=== PATIENT | female | born 1965 ===

== ENCOUNTER 2016-09-21 11:26 | Inpatient (IN) | payer OTHER, MEDICAID ==
[2016-09-21 11:27] VITALS: BMI 28.3
--- NOTE | 2016-09-21 12:28 | ED PDOC ---
HPI: Psych/Substance Abuse Time Seen by Provider: 09/21/16 12:01 Chief Complaint (Nursing): Psychiatric Evaluation History Per: Patient, Family (Jenny (sister)) History/Exam Limitations: intoxication Additional Complaint(s): As per pt's sister, pt. called her today crying and saying that she wanted to hurt herself. Her sister states that they picked her up from [facility] ED earlier today where she was being treated for ETOH intoxication and was discharged at 0600 under the care of pt.'s son. Pt. was brought to her sister's house where they attempted to bathe and feed her but she refused and eventually left the house again. Her sister believes that she may have drank more as she appears to be mroe intoxicated than when she left the house. Pt. does have a hx of suicidal ideations and attempt. Pt. offers no complaints at this time and is requesting to leave. Past Medical History Reviewed: Historical Data, Nursing Documentation, Vital Signs - Medical History PMH: Anxiety, Bipolar Disorder, Depression, Hepatitis Denies: Diabetes, HIV, HTN, Chronic Kidney Disease, Seizures, Sexually Transmitted Disease - Family History Family History: States: No Known Family Hx - Immunization History Hx Tetanus Toxoid Vaccination: No Hx Influenza Vaccination: No Hx Pneumococcal Vaccination: No - Home Medications Home Medications: Ambulatory Orders Medication Instructions Recorded Unobtainable 11/11/15 Divalproex [Depakote DR] 500 mg PO BID #60 tcp 01/04/16 Gabapentin [Neurontin] 300 mg PO TID #90 cap 01/04/16 Sertraline [Zoloft] 50 mg PO DAILY #30 tab 01/04/16 traZODone [Desyrel] 50 mg PO HS #30 tab 01/04/16 Divalproex [Depakote DR] 250 mg PO BID #60 tcp 02/13/16 Gabapentin [Neurontin] 300 mg PO BID #60 cap 02/13/16 Sertraline [Zoloft] 100 mg PO DAILY #30 tab 02/13/16 traZODone [Desyrel] 50 mg PO HS PRN #30 tab 02/13/16 - Allergies Allergies/Adverse Reactions: Allergies Allergy/AdvReac Type Severity Reaction Status Date / Time No Known Allergies Allergy Verified 09/20/16 17:45 Review of Systems Review Of Systems: ROS cannot be obtained secondary to pt's inabilty to answer questions. Psych: Positive for: Suicidal ideation Physical Exam - Reviewed Nursing Documentation Reviewed: Yes Vital Signs Reviewed: Yes - Physical Exam Appears: Positive for: Well, Non-toxic, No Acute Distress (pt looks disheveled) Head Exam: Positive for: ATRAUMATIC, NORMAL INSPECTION, NORMOCEPHALIC Skin: Positive for: Normal Color, Warm. Negative for: Rash Eye Exam: Positive for: EOMI, Normal appearance, PERRL ENT: Positive for: Normal ENT Inspection Neck: Positive for: Normal, Painless ROM Cardiovascular/Chest: Positive for: Regular Rate, Rhythm Respiratory: Positive for: CNT, Normal Breath Sounds Gastrointestinal/Abdominal: Positive for: Normal Exam, Bowel Sounds, Soft. Negative for: Tenderness Back: Positive for: Normal Inspection Extremity: Positive for: Normal ROM Neurologic/Psych: Positive for: Alert, Oriented, Mood/Affect (incessant crying but is cooperative), Gait (steady), Other (slurred speech; AOB). Negative for: Aphasia, Facial Droop - Laboratory Results Result Diagrams: 09/21/16 12:30 09/21/16 12:30 - Radiology X-Ray: Interpreted by Me (CXR) X-Ray Interpretation: No Acute Disease ED OBSERVATION Date of observation admission: 09/21/16 Time of observation admission: 12:31 - Observation admission statement Patient is being placed in observation because:: ETOH, crisis - Progress Note Progress Note: 09/21/16 12:31 Labs ordered. Pt placed on 1:1. 09/21/16 12:41 Pt. given food and is eating. 09/21/16 14:14 Pt on assessment continues crying and becoming unruly. Ativan 2 mg and Haldol 5 mg given. Restraints ordered. 09/21/16 16:25 Sleeping comfortably and in no distress. 09/21/16 18:50 Sleeping comfortably but easily arousable to verbal stimuli. Pending crisis evaluation. 09/21/16 19:11 Pt. evaluated by crisis who spoke with Dillon Breaux and arrangements made for admission. CXR ordered. EKG SR at [address]-T wave changes. Urine : negative. Disposition - Clinical Impression Clinical Impression: Bipolar 1 disorder - Patient ED Disposition Is Patient to be Admitted: Yes - Disposition Disposition Time: 19:20 Condition: IMPROVED
[2016-09-21 12:49] LABS: BASO % 0.5 % (0.0-2.0); EOS # 0.1 K/uL (0.0-0.7); EOS % 1.3 % (0.0-4.0); HEMOGLOBIN 12.3 g/dL (12.0-16.0); LYMPH # 1.7 K/uL (1.0-4.3); LYMPH % 23.1 % (20.0-40.0); MEAN CORPUSCULAR HEMOGLOBIN 29.3 pg (27.0-31.0); MEAN CORPUSCULAR HGB CONC 32.6 g/dL (33.0-37.0); MEAN PLATELET VOLUME 7.6 fl (7.2-11.7); MONO # 0.5 K/uL (0.0-0.8); MONO % 7.5 % (0.0-10.0); NEUT # 4.9 K/uL (1.8-7.0); NEUT % 67.6 % (50.0-75.0); RBC 4.19 Mil/uL (3.80-5.20); RED CELL DISTRIBUTION WIDTH 16.2 % (11.5-14.5); WHITE BLOOD COUNT 7.2 K/uL (4.8-10.8)
[2016-09-21 12:53] LABS: BARBITURATES, UR NEGATIVE (NEGATIVE); BENZODIAZEPINES, UR NEGATIVE (NEGATIVE); OPIATES, UR NEGATIVE (NEGATIVE); PHENCYCLIDINE, UR NEGATIVE (NEGATIVE)
[2016-09-21 12:54] LABS: ALB/GLOB RATIO 1.5 (1.0-2.1); ALBUMIN 4.8 g/dL (3.5-5.0); ALT/SGPT 39 U/L (9-52); AST/SGOT 37 U/L (14-36); BLOOD UREA NITROGEN 11 mg/dl (7-17); GFR AFRICAN-AMERICAN > 60; GFR NON-AFRICAN AMERICAN 58
[2016-09-21 12:58] LABS: SQUAMOUS EPITHIAL 1 /hpf (0-5); URINE BACTERIA RARE (<OCC); URINE BILIRUBIN NEGATIVE (NEGATIVE); URINE BLOOD NEGATIVE (NEGATIVE); URINE CLARITY CLEAR (Clear); URINE COLOR YELLOW (YELLOW); URINE GLUCOSE (UA) NEG (Normal); URINE LEUKOCYTE ESTERASE NEG Leu/uL (Negative); URINE NITRATE NEGATIVE (NEGATIVE); URINE PROTEIN NEGATIVE (NEGATIVE); URINE UROBILINOGEN 0.2-1.0 mg/dL (0.2-1.0)
[2016-09-21 13:19] LABS: SALICYLATE < 1.0 mg/dl
[2016-09-21 13:20] LABS: ACETAMINOPHEN < 10.0 ug/ml (10.0-30.0)
[2016-09-21 21:20] VITALS: O2SAT 98
[2016-09-21] MEDS ORDERED: Magnesium Hydroxide Susp 30 ml UD PO PRN (21:49)
[2016-09-21] MEDS ORDERED: DiphenhydrAMINE 50 mg/ml Inj IM PRN (21:49)
[2016-09-21] MEDS ORDERED: Alum-Mag Hydrox-Simethicone Susp (30 mL) PO PRN (21:49)
--- NOTE | 2016-09-22 08:35 | RAD ---
HISTORY: clearance COMPARISON: No prior. FINDINGS: LUNGS: No active pulmonary disease. PLEURA: No significant pleural effusion identified, no pneumothorax apparent. CARDIOVASCULAR: Normal. OSSEOUS STRUCTURES: No significant abnormalities. VISUALIZED UPPER ABDOMEN: Normal. OTHER FINDINGS: None. IMPRESSION: No active disease.
[2016-09-22 08:57] LABS: T4 6.68 ug/dl (5.5-11.0)
[2016-09-22] MEDS: Multivitamin With Minerals Tab PO SCH (10:13)
--- NOTE | 2016-09-22 15:27 | CP.PCM.CON ---
History of Present Illness - History of Present Illness History of Present Illness: 51 yo female with history of depression admitted to psyche unit because of suicidal ideation Review of Systems - Review of Systems All systems: reviewed and no additional remarkable complaints except (aside from those mentioned above, 12 point system review were negative by me) Past Patient History - Infectious Disease Hx of Infectious Diseases: None - Tetanus Immunizations Tetanus Immunization: Unknown - Past Medical History & Family History Past Family History: Reviewed and not pertinent - Past Social History Smoking Status: Never Smoked Alcohol: > 2 Drinks/Day Drugs: Denies Home Situation {Lives}: With Family - CARDIAC Hx Hypertension: No - PULMONARY Hx Respiratory Disorders: No Hx Tuberculosis: No - NEUROLOGICAL Hx Seizures: No - HEENT Hx HEENT Problems: No - RENAL Hx Chronic Kidney Disease: No - ENDOCRINE/METABOLIC Hx Endocrine Disorders: No - HEMATOLOGICAL/ONCOLOGICAL Hx Human Immunodeficiency Virus (HIV): No - INTEGUMENTARY Hx Dermatological Problems: No - MUSCULOSKELETAL/RHEUMATOLOGICAL Hx Musculoskeletal Disorders: No - GASTROINTESTINAL Hx Gastrointestinal Disorders: Yes Hx Gastroesophageal Reflux: Yes - GENITOURINARY/GYNECOLOGICAL Hx Sexually Transmitted Disorders: No - PSYCHIATRIC Hx Anxiety: Yes Hx Bipolar Disorder: Yes Hx Depression: Yes - SURGICAL HISTORY Hx Hysterectomy: Yes ("reprotedly she surgery so she can't have babies") Hx Tubal Ligation: Yes (yrs ago) - ANESTHESIA Hx Anesthesia: Yes Hx Anesthesia Reactions: No Meds Allergies/Adverse Reactions: Allergies Allergy/AdvReac Type Severity Reaction Status Date / Time No Known Allergies Allergy Verified 09/20/16 17:45 - Medications Medications: Current Medications Acetaminophen (Tylenol 325mg Tab) 650 mg PO Q4 PRN PRN Reason: Pain, moderate (4-7) Al Hydrox/Mg Hydrox/Simethicone (Maalox Plus 30 Ml) 30 ml PO Q4 PRN PRN Reason: Dyspepsia Diphenhydramine HCl (Benadryl) 50 mg IM Q6 PRN PRN Reason: Extrapyramidal S/S Unable PO Last Admin: 09/22/16 10:45 Dose: 50 mg Diphenhydramine HCl (Benadryl) 50 mg PO Q6 PRN PRN Reason: Extrapyramidal Symptoms Last Admin: 09/22/16 09:29 Dose: 50 mg Folic Acid (Folic Acid) 1 mg PO DAILY JOSE ANTONIO Last Admin: 09/22/16 10:13 Dose: Not Given Haloperidol (Haldol) 5 mg PO Q4 PRN PRN Reason: Agitation Last Admin: 09/22/16 09:29 Dose: 5 mg Haloperidol Lactate (Haldol) 5 mg IM Q4 PRN PRN Reason: Agitation, Unable to Take PO Lorazepam (Ativan) 2 mg IM Q4 PRN PRN Reason: Anxiety/Agitation,Unable PO Last Admin: 09/22/16 10:45 Dose: 2 mg Lorazepam (Ativan) 1 mg PO TID [facility] Last Admin: 09/22/16 13:09 Dose: 1 mg Lorazepam (Ativan) 2 mg PO Q6 PRN PRN Reason: Agitation Last Admin: 09/22/16 08:47 Dose: 2 mg Magnesium Hydroxide (Milk Of Magnesia) 30 ml PO HS PRN PRN Reason: Constipation Multivitamins/Minerals (Therapeutic-M Tab) 1 tab PO DAILY [facility] Last Admin: 09/22/16 10:13 Dose: Not Given Thiamine HCl (Vitamin B1 Tab) 100 mg PO DAILY [facility] Last Admin: 09/22/16 10:13 Dose: Not Given Trazodone HCl (Desyrel) 50 mg PO HS PRN PRN Reason: Insomnia Physical Exam - Constitutional Appears: No Acute Distress - Head Exam Head Exam: ATRAUMATIC - Eye Exam Eye Exam: absent: Scleral icterus - ENT Exam ENT Exam: Mucous Membranes Moist - Neck Exam Neck exam: Negative for: Meningismus - Respiratory Exam Respiratory Exam: absent: Rhonchi, Wheezes, Respiratory Distress - Cardiovascular Exam Cardiovascular Exam: REGULAR RHYTHM, +S1, +S2 - GI/Abdominal Exam GI & Abdominal Exam: Soft. absent: Tenderness - Rectal Exam Rectal Exam: Deferred - Extremities Exam Extremities exam: Negative for: pedal edema - Back Exam Back exam: NORMAL INSPECTION - Neurological Exam Neurological exam: Alert, Oriented x3 - Psychiatric Exam Psychiatric exam: Normal Affect - Skin Skin Exam: Dry, Intact Results - Vital Signs Recent Vital Signs: Last Vital Signs Temp 97.5 F L 09/22/16 09:23 Pulse 100 H 09/22/16 09:23 Resp 20 09/22/16 09:23 BP 149/104 H 09/22/16 09:23 Pulse Ox 98 09/21/16 21:19 - Labs Result Diagrams: 09/21/16 12:30 09/21/16 12:30 Labs: Laboratory Results - last 24 hr 09/22/16 06:30 Triglycerides 259 H Cholesterol 210 H LDL Cholesterol Direct 114 HDL Cholesterol 52 Thyroxine (T4) 6.68 TSH 3rd Generation 2.59 Assessment & Plan (1) Suicidal ideation Status: Acute Comment: psyche is managing (2) Alcohol abuse Status: Acute Comment: psyche is managing
[2016-09-23] MEDS: Multivitamin With Minerals Tab PO SCH (08:16)
[2016-09-23] MEDS ORDERED: Trimethobenzamide 200 mg/2 mL Inj IM ONE (09:43)
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
[2016-09-23] MEDS: Divalproex 250 mg DR(BID formulation) PO SCH (17:44)
[2016-09-24] MEDS: Multivitamin With Minerals Tab PO SCH (08:39)
[2016-09-24] MEDS: Divalproex 250 mg DR(BID formulation) PO SCH ×2 (08:39→17:44)
--- NOTE | 2016-09-24 13:43 | PCM.PYCHPN ---
Psychiatric Progress Note - Psychiatric Progress Note Patient seen today, length of contact: discussed with team Patient Chief Complaint: i am think i should go Problems Identified/Issues Discussed: less irritable today. still focused on having needs met immediately. she is denying any medication side effects. pt denies withdrawal symptoms. Medication Change: Yes (lower ativan) Medical Record Reviewed: Yes Mental Status Examination - Cognitive Function Orientation: Person, Place, Situation, Time Memory: Intact Attention: WNL Concentration: WNL Association: WNL Fund of Knowledge: WNL Decription of patient's judgement and insights: fair - Mood Mood: Anxious - Affect Affect: Constricted - Formal Thought Process Formal Thought Process: Paranoia, Loosening of associations - Suicidal Ideation Suicidal Ideation: No - Homicidal Ideation Homicidal Ideation: No Goal/Treatment Plan - Goal/Treatment Plan Need for Continued Stay: Remain at risks for inpatient hospitalization, Discharge may exacerbated symptoms Progress Toward Problem(s) and Goals/Treatment Plan: alcohol dependence bipolar disorder by history continue current treatment disposition planning lower ativan. Estimated Date of D/C: 09/26/16 - Smoking Cessation Smoking Cessation Initiated: Yes
[2016-09-24 16:45] VITALS: TEMP 97.3
--- NOTE | 2016-09-25 06:31 | CARD ---
APPROVED REPORT EKG Measurement Heart [id number] <Conclusion> Normal sinus rhythm Prolonged QT Abnormal ECG
[2016-09-25] MEDS: Divalproex 250 mg DR(BID formulation) PO SCH (09:14)
[2016-09-25] MEDS: Multivitamin With Minerals Tab PO SCH (09:16)
--- NOTE | 2016-09-25 09:57 | PCM.PYCHDC ---
Mental Status Examination - Mental Status Examination Orientation: Person, Place, Situation, Time Memory: Intact Mood: Anxious (regarding discharge) Affect: Constricted Speech: Appropriate Attention: WNL Concentration: WNL Association: WNL Fund of Knowledge: WNL Formal Thought Process: No Impairment Description of patient's judgement and insight: fair Psychotic Thoughts and Behaviors: denies a/v hallucinations Suicidal Ideation: No Current Homicidal Ideation?: No Plan: pt denies any suicidal or homicidal thoughts/plans or intent Discharge Summary - Discharge Note Reason for Hospitalization: alcohol use, suicidal threats Psychiatric History (includes Medical, Family, Personal Hx): history of bipolar disorder, alcohol dependence Consultations:: List each consultation separately and include: 1. Reason for request. 2. Findings. 3. Follow-up Consultations: seen by bilingual medical assistant Summary of Hospital Course include:: 1. Description of specific treatment plan utilized for patients during their course of treatmen. 2. Summarize the time- course for resolution of acute symptoms and/or regressed behaviors. 3. Describe issues identified and worked on during hospitalization. 4. Describe medication utilized. 5. Describe medical problems identified and treated. 6. Reassessment of suicide risk Summary of Hospital Course: 51 yo female with history of recent discharge from [facility] who has a history of alcohol dependence and mood disorder. she was sent to [facility] twice on day of admission for public intoxication. she was admitted here at [facility] apparently because of mood symptoms. pt states she is only here because of her drinking. she is anxious and states she is nauseated. she states "i want to get better" but cannot name any symptoms she wants to improve. she indicates she does not want to be referred to inpatient substance abuse treatment. she is unkempt, anxious and irritable, focused on getting her body spray more than anything else at this point. she is an unwilling historian. she states "i was supposed to go to [facility], why did they send me here!" hospital course pt was admitted to [facility] and oriented to the unit. placed on routine safety protocols. placed on ativan to prevent alcohol withdrawal complications. she was started back on her home meds. she was irritable but in control of behaviors. there were no withdrawal symptoms. she was denying any suicidal or homicidal thoughts at the time of discharge. - Final Diagnosis (DSM 5) Condition upon Discharge: IMPROVED DSM 5: alcohol dependence bipolar disorder Disposition: HOME/ ROUTINE Follow-up Treatment Plan: take medications as prescribed do not use alcohol, tobacco or other illicit substances call 911 if any suicidal or homicidal thoughts attend aa meetings daily attend aftercare appointments as directed. Prescriptions/Medication Reconciliation: Divalproex [Depakote DR] 250 mg PO BID #60 tcp Folic Acid 1 mg PO DAILY #30 tab Gabapentin [Neurontin] 300 mg PO TID #90 cap Multimineral/Multivitamin [Therapeutic-M Tab] 1 tab PO DAILY #30 tab Sertraline [Zoloft] 50 mg PO DAILY #30 tab Thiamine [Vitamin B1 Tab] 100 mg PO DAILY #30 tab traZODone [Desyrel] 50 mg PO HS PRN #30 tab PRN Reason: Insomnia - Smoking Cessation Smoking Cessation Medication prescribed: No Reason for not providing: declines - Antipsychotic Medications Pt discharged on 2 or more routine antipsychotic medications: No
[2016-09-25 10:00] VITALS: BP 151/87; PULSE 76; RESP 16
== END 2016-09-25 13:00 | disposition home or self-care (01) | DRG 895 ==
LOC: H.ER 11:26 → INTOOBSV 12:13 → H.EROBSV 12:13 → OBSVTOIN 12:13 → H.EROBSV 21:36 → H.PSYCH 21:36 → OBSVTOIN 21:55 → H.PSYCH 21:59
PROVIDERS: ADMIT Psychiatry & Neurology Psychiatry; ATTEND Psychiatry & Neurology Psychiatry
PROC: HZ59ZZZ Individual Psychotherapy for Substance Abuse Treatment, Supportive (ICD-10-PCS; principal; 2016-09-21)
PROC: GZHZZZZ Group Psychotherapy (ICD-10-PCS; 2016-09-21)
DX: F10.20 Alcohol dependence, uncomplicated (principal); R45.851 Suicidal ideations; F31.9 Bipolar disorder, unspecified; Y90.6 Blood alcohol level of 120-199 mg/100 ml

== ENCOUNTER 2017-04-28 01:00 | Emergency (ER) | payer OTHER ==
[2017-04-28 01:00] VITALS: BMI 28.3
[2017-04-28 01:12] VITALS: RESP 18; TEMP 98.7
--- NOTE | 2017-04-28 02:14 | ED PDOC ---
HPI: General Adult Time Seen by Provider: 04/28/17 01:12 Chief Complaint (Nursing): Alcohol Ingestion History Per: Patient Additional Complaint(s): Pt. states she wants detox from ETOH. Admits to drinking alcohol tonight. Offers no complaints at this time. Pt. is requesting food and meds to help her sleep. Denies abdominal pain, chest pain, SOB, SI/HI, hallucinations. Past Medical History Reviewed: Historical Data, Nursing Documentation, Vital Signs Vital Signs: Last Vital Signs Temp 98.7 F 04/28/17 01:09 Pulse 97 H 04/28/17 02:35 Resp 18 04/28/17 02:35 BP 112/74 04/28/17 02:35 Pulse Ox 98 04/28/17 05:22 - Medical History PMH: Anxiety, Bipolar Disorder, Depression, Hepatitis Denies: Diabetes, HIV, HTN, Chronic Kidney Disease, Seizures, Sexually Transmitted Disease - Family History Family History: States: No Known Family Hx - Immunization History Hx Tetanus Toxoid Vaccination: No Hx Influenza Vaccination: No Hx Pneumococcal Vaccination: No - Home Medications Home Medications: Ambulatory Orders Medication Instructions Recorded Divalproex [Depakote DR] 250 mg PO BID #60 tcp 09/25/16 Folic Acid 1 mg PO DAILY #30 tab 09/25/16 Gabapentin [Neurontin] 300 mg PO TID #90 cap 09/25/16 Multimineral/Multivitamin 1 tab PO DAILY #30 tab 09/25/16 [Therapeutic-M Tab] Sertraline [Zoloft] 50 mg PO DAILY #30 tab 09/25/16 Thiamine [Vitamin B1 Tab] 100 mg PO DAILY #30 tab 09/25/16 traZODone [Desyrel] 50 mg PO HS PRN #30 tab 09/25/16 Ibuprofen [Motrin] 1 tab PO Q6 #30 tab 12/22/16 - Allergies Allergies/Adverse Reactions: Allergies Allergy/AdvReac Type Severity Reaction Status Date / Time No Known Allergies Allergy Verified 04/28/17 01:08 Review of Systems ROS Statement: Except As Marked, All Systems Reviewed And Found Negative Physical Exam - Reviewed Nursing Documentation Reviewed: Yes Vital Signs Reviewed: Yes - Physical Exam Appears: Positive for: Well, Non-toxic, No Acute Distress Head Exam: Positive for: ATRAUMATIC, NORMAL INSPECTION, NORMOCEPHALIC Skin: Positive for: Normal Color, Warm. Negative for: Rash Eye Exam: Positive for: Normal appearance ENT: Positive for: Normal ENT Inspection Neck: Positive for: Normal, Painless ROM Cardiovascular/Chest: Positive for: Regular Rate, Rhythm Respiratory: Positive for: CNT, Normal Breath Sounds Gastrointestinal/Abdominal: Positive for: Normal Exam, Soft. Negative for: Tenderness Back: Positive for: Normal Inspection. Negative for: L CVA Tenderness, R CVA Tenderness Extremity: Positive for: Normal ROM Neurologic/Psych: Positive for: Alert, Oriented, Gait (steady, unassisted ). Negative for: Aphasia, Facial Droop - ECG O2 Sat by Pulse Oximetry: 98 - Progress ED Course And Treament: Of note, this is pt.'s 3rd ED visit tonight. As per EMS she was [place] [facility] for same complaints. As per [facility] ED's notes pt. was seen by crisis but did not meet criteria for detox and was subsequently dc'd. Ativan 1mg PO ordered. Pt. seen walking around in ED with steady unassisted gait. Instructed to go back to room multiple times. Pt. is requesting more food. Additional food given. Pt. refuses to stay in her room. Repeat HR: 97 Disposition - Clinical Impression Clinical Impression: Alcohol intoxication - Patient ED Disposition Is Patient to be Admitted: No - Disposition Referrals: Samir Issa MD [Primary Care Provider] - Disposition: Routine/Home Disposition Time: 03:00 Condition: STABLE Instructions: Alcohol Abuse and Alcoholism (DC) Forms: [employer] (Arabic)
[2017-04-28 02:36] VITALS: BP 112/74; PULSE 97
[2017-04-28 02:56] VITALS: O2SAT 98
== END 2017-04-28 03:26 | disposition home or self-care (01) ==
LOC: H.ER 01:00
DX: F10.129 Alcohol abuse with intoxication, unspecified (principal); F31.9 Bipolar disorder, unspecified; F41.9 Anxiety disorder, unspecified

== ENCOUNTER 2017-05-30 13:31 | Inpatient (IN) | payer OTHER, MEDICAID ==
[2017-05-30 13:31] VITALS: BMI 28.3
[2017-05-30] MEDS ORDERED: Sodium Chloride 0.9% 1,000 ML IV STA (13:56)
--- NOTE | 2017-05-30 14:04 | ED PDOC ---
HPI: Psych/Substance Abuse Time Seen by Provider: 05/30/17 13:46 Chief Complaint (Nursing): Psychiatric Evaluation History Per: Patient (patient brought by EMS because of concerns of SI resulting from her partner "leaving" her yesterday. Patient may have taken an unknown quantity of NyQuil earlier.She could not tell how much and when.) Past Medical History Reviewed: Historical Data, Nursing Documentation, Vital Signs Vital Signs: Last Vital Signs Temp 98.3 F 05/30/17 13:34 Pulse 123 H 05/30/17 13:34 Resp 16 05/30/17 13:34 BP Pulse Ox 99 05/30/17 13:34 - Medical History PMH: Anxiety, Bipolar Disorder, Depression, Hepatitis Denies: Diabetes, HIV, HTN, Chronic Kidney Disease, Seizures, Sexually Transmitted Disease - Surgical History Surgical History: No Surg Hx - Family History Family History: States: Unknown Family Hx - Living Arrangements Living Arrangements: With Family - Immunization History Hx Tetanus Toxoid Vaccination: No Hx Influenza Vaccination: No Hx Pneumococcal Vaccination: No - Home Medications Home Medications: Ambulatory Orders Medication Instructions Recorded Benztropine [Cogentin] 1 mg PO BID #14 tab 05/09/17 DiphenhydrAMINE [Benadryl] 25 mg PO BID #14 cap 05/09/17 FLUoxetine [Prozac] 20 mg PO DAILY #30 cap 05/09/17 Haloperidol [Haldol] 10 mg PO BID #14 tab 05/09/17 Multivitamins [Hexavitamin] 1 tab PO DAILY #30 tab 05/09/17 QUEtiapine [Seroquel] 100 mg PO HS #14 tab 05/09/17 - Allergies Allergies/Adverse Reactions: Allergies Allergy/AdvReac Type Severity Reaction Status Date / Time No Known Allergies Allergy Verified 04/28/17 01:08 Review of Systems Review Of Systems: ROS cannot be obtained secondary to pt's inabilty to answer questions. Physical Exam - Reviewed Nursing Documentation Reviewed: Yes Vital Signs Reviewed: Yes - Physical Exam Appears: Positive for: Well, No Acute Distress Head Exam: Positive for: ATRAUMATIC, NORMAL INSPECTION, NORMOCEPHALIC Skin: Positive for: Normal Color Eye Exam: Positive for: Normal appearance ENT: Positive for: Normal ENT Inspection Neck: Positive for: Normal Cardiovascular/Chest: Positive for: Regular Rate, Rhythm Respiratory: Positive for: CNT, Normal Breath Sounds Gastrointestinal/Abdominal: Positive for: Normal Exam Back: Positive for: Normal Inspection Extremity: Positive for: Normal ROM Neurologic/Psych: Positive for: Alert, Oriented - Laboratory Results Result Diagrams: 05/30/17 14:00 05/30/17 14:00 - ECG O2 Sat by Pulse Oximetry: 99 Medical Decision Making Medical Decision Making: patient is medically cleared for crisis eval. repeat LFTs in 4hours, repeat EKG 1-2 hours, Add Mg per poison control Disposition - Clinical Impression Clinical Impression: Psychiatric illness - Patient ED Disposition Is Patient to be Admitted: Transfer of Care - Disposition Disposition: Transfer of Care Disposition Time: 14:11 Condition: FAIR Forms: [employer] (Macedonian) Patient Signed Over To: Eliecer Enriquez Present On Arrival: None
[2017-05-30 14:13] LABS: BASO % 0.6 % (0.0-2.0); EOS % 0.1 % (0.0-4.0); LYMPH # 1.3 K/uL (1.0-4.3); LYMPH % 20.4 % (20.0-40.0); MEAN CELL VOLUME 92.3 fl (81.0-99.0); MEAN CORPUSCULAR HEMOGLOBIN 30.7 pg (27.0-31.0); MEAN CORPUSCULAR HGB CONC 33.3 g/dL (33.0-37.0); MEAN PLATELET VOLUME 8.6 fl (7.2-11.7); MONO # 0.4 K/uL (0.0-0.8); MONO % 6.3 % (0.0-10.0); NEUT # 4.5 K/uL (1.8-7.0); NEUT % 72.6 % (50.0-75.0); NRBC % 0.1 % (0.0-0.0); RBC 4.24 Mil/uL (3.80-5.20); RED CELL DISTRIBUTION WIDTH 16.4 % (11.5-14.5); WHITE BLOOD COUNT 6.2 K/uL (4.8-10.8)
[2017-05-30 14:26] LABS: ALB/GLOB RATIO 1.2 (1.0-2.1); ALBUMIN 4.7 g/dL (3.5-5.0); ALT/SGPT 24 U/L (9-52); AST/SGOT 23 U/L (14-36); BLOOD UREA NITROGEN 4 mg/dl (7-17); CALCIUM 9.6 mg/dL (8.4-10.2); GFR AFRICAN-AMERICAN > 60; GFR NON-AFRICAN AMERICAN > 60
[2017-05-30 14:34] LABS: SALICYLATE < 1.0 mg/dl
[2017-05-30 14:35] LABS: OPIATES, UR NEGATIVE (NEGATIVE); PHENCYCLIDINE, UR NEGATIVE (NEGATIVE)
[2017-05-30 14:36] LABS: BARBITURATES, UR NEGATIVE (NEGATIVE); BENZODIAZEPINES, UR POSITIVE (NEGATIVE)
--- NOTE | 2017-05-30 15:15 | ED PDOC ---
- Laboratory Results Result Diagrams: 05/30/17 14:00 05/30/17 14:00 - ECG O2 Sat by Pulse Oximetry: 99 (RA) Pulse Ox Interpretation: Normal Medical Decision Making Medical Decision Making: Time: 1500 --Patient was endorsed to provider by Dr. Ambreen Bowers. Pending crisis evaluation. Repeat EKG at [id number] and LFT at 1800. Scribe Attestation: Documented by Katelyn Simpson, acting as a scribe for Eliecer Enriquez MD. Medically stable for psychiatric admission Provider Scribe Attestation: All medical record entries made by the Scribe were at my direction and personally dictated by me. I have reviewed the chart and agree that the record accurately reflects my personal performance of the history, physical exam, medical decision making, and the department course for this patient. I have also personally directed, reviewed, and agree with the discharge instructions and disposition. Disposition - Clinical Impression Clinical Impression: Psychiatric illness, Schizoaffective disorder - POA Present On Arrival: None - Disposition Disposition: Admitted as In-Patient Disposition Time: 19:38 Condition: FAIR Forms: [email or web address] ([email or web address])
[2017-05-30 17:51] LABS: ALB/GLOB RATIO 1.1 (1.0-2.1); BILIRUBIN,DIRECT 0.2 mg/ml (0.0-0.4)
[2017-05-30 20:06] VITALS: O2SAT 98
--- NOTE | 2017-05-30 21:00 | PCM.BM ---
Treatment assets and liabiliti Patient Assests: cooperative, ADL independent, negotiates basic needs, good past tx response Patient Liabilities: financial problems, poor support system, other - Milieu Protocol Maintain good personal hygiene: daily Encourage regular showers, daily Remind patient to perform daily oral care, daily Assist patient to perform ADL's Maintain personal safety: every shift Educate patient to report safety concerns to staff, every shift Monitor environment for contraband/sharps Medication safety: Monitor for expected outcome, potential side effects: every shift, Assess barriers to learning: every shift, Assess readiness for medication education: every shift Family Contact Family involvement: Famliy/SO not involved
[2017-05-30] MEDS ORDERED: Magnesium Hydroxide Susp 30 ml UD PO PRN (21:58)
[2017-05-30] MEDS ORDERED: Alum-Mag Hydrox-Simethicone Susp (30 mL) PO PRN (21:58)
--- NOTE | 2017-05-31 09:02 | RAD ---
HISTORY: cough COMPARISON: Chest radiograph dated 09/21/2016 FINDINGS: LUNGS: No active pulmonary disease. PLEURA: No significant pleural effusion identified, no pneumothorax apparent. CARDIOVASCULAR: Normal. OSSEOUS STRUCTURES: Unchanged. VISUALIZED UPPER ABDOMEN: Normal. OTHER FINDINGS: None. IMPRESSION: No active disease.
[2017-05-31 09:35] VITALS: RESP 20
[2017-05-31 09:53] LABS: T4 8.58 ug/dl (5.5-11.0)
--- NOTE | 2017-05-31 11:08 | CP.PCM.CON ---
History of Present Illness - History of Present Illness History of Present Illness: This is a 52 yo female with a past medical history of hepatitis, depression, and alcoholism who is admitted to the inpatient psychiatric facility for suicidal ideation and possible suicidal attempt with NyQuil. She is tearful upon encounter and appears very anxious. She denies any medical problems. Patient denies chest pain, shortness of breath, fevers, chills, nausea, vomiting , diarrhea, headache. All of the patient's family's questions were answered at the bedside. Review of Systems - Review of Systems Review of Systems: A 12 point review of systems was conducted and found to be negative other than what was mentioned in the HPI. Past Patient History - Infectious Disease Hx of Infectious Diseases: None - Tetanus Immunizations Tetanus Immunization: Unknown - Past Medical History & Family History Past Medical History?: Yes - Past Social History Smoking Status: Never Smoked Drugs: Denies - CARDIAC Hx Cardiac Disorders: No Hx Hypertension: No - PULMONARY Hx Respiratory Disorders: No Hx Tuberculosis: No - NEUROLOGICAL Hx Neurological Disorder: No HX Cerebrovascular Accident: No Hx Seizures: No - HEENT Hx HEENT Problems: No - RENAL Hx Chronic Kidney Disease: No - ENDOCRINE/METABOLIC Hx Endocrine Disorders: No - HEMATOLOGICAL/ONCOLOGICAL Hx Blood Disorders: No Hx Cancer: No Hx Human Immunodeficiency Virus (HIV): No - INTEGUMENTARY Hx Dermatological Problems: No - MUSCULOSKELETAL/RHEUMATOLOGICAL Hx Musculoskeletal Disorders: No Hx Falls: No - GASTROINTESTINAL Hx Gastrointestinal Disorders: Yes Hx Gastroesophageal Reflux: Yes - GENITOURINARY/GYNECOLOGICAL Hx Genitourinary Disorders: No Hx Sexually Transmitted Disorders: No - PSYCHIATRIC Hx Depression: Yes - SURGICAL HISTORY Hx Surgeries: Yes Hx Tubal Ligation: Yes - ANESTHESIA Hx Anesthesia: Yes Hx Anesthesia Reactions: No Meds Allergies/Adverse Reactions: Allergies Allergy/AdvReac Type Severity Reaction Status Date / Time No Known Allergies Allergy Verified 04/28/17 01:08 - Medications Medications: Current Medications Acetaminophen (Tylenol 325mg Tab) 650 mg PO Q4 PRN PRN Reason: pain level 4-7 Al Hydrox/Mg Hydrox/Simethicone (Maalox Plus 30 Ml) 30 ml PO Q4 PRN PRN Reason: Dyspepsia Diphenhydramine HCl (Benadryl) 50 mg IM Q6 PRN PRN Reason: Extrapyramidal S/S Unable PO Diphenhydramine HCl (Benadryl) 50 mg PO Q6 PRN PRN Reason: Extrapyramidal Symptoms Haloperidol (Haldol) 5 mg PO Q4 PRN PRN Reason: Agitation Haloperidol Lactate (Haldol) 5 mg IM Q4 PRN PRN Reason: Agitation, Unable to Take PO Lorazepam (Ativan) 2 mg IM Q4 PRN PRN Reason: Anxiety/Agitation,Unable PO Lorazepam (Ativan) 2 mg PO Q4 PRN PRN Reason: Anxiety/Agitation Last Admin: 05/31/17 09:09 Dose: 2 mg Magnesium Hydroxide (Milk Of Magnesia) 30 ml PO HS PRN PRN Reason: Constipation Physical Exam - Additional Findings Additional findings: Physical exam: Constitutional- cooperative, awake, alert Head- NCAT, PERRL Eye- PERRL, EOMI ENT- normal exam, MMM. Neck- normal inspection, supple, no JVD Respiratory- CTAB, no wheezes rales rhonchi Cardiovascular- RRR, +S1, +S2 no MRG GI/Abdominal- normal bowel sounds, soft, no mass, no hsm Skin- warm, dry Extremities Exam- normal capillary refill, normal inspection Neurological Exam- alert, awake, oriented Psych- depressed mood, flat affect, tearful Results - Vital Signs Recent Vital Signs: Last Vital Signs Temp 97.8 F 05/31/17 09:00 Pulse 113 H 05/31/17 09:00 Resp 20 05/31/17 09:00 BP 124/83 05/31/17 09:00 Pulse Ox 98 05/30/17 20:05 - Labs Result Diagrams: 05/30/17 14:00 05/30/17 14:00 Labs: Laboratory Results - last 24 hr 05/30/17 05/30/17 05/30/17 14:00 14:00 14:00 WBC 6.2 RBC 4.24 Hgb 13.0 Hct 39.1 MCV 92.3 D MCH 30.7 MCHC 33.3 RDW 16.4 H Plt Count 320 MPV 8.6 Neut % (Auto) 72.6 Lymph % (Auto) 20.4 Smyth % (Auto) 6.3 Eos % (Auto) 0.1 Baso % (Auto) 0.6 Neut # (Auto) 4.5 Lymph # (Auto) 1.3 Smyth # (Auto) 0.4 Eos # (Auto) 0.0 Baso # (Auto) 0.0 Sodium 144 Potassium 3.7 Chloride 106 Carbon Dioxide 21 L Anion Gap 21 H BUN 4 L Creatinine 0.9 Est GFR ( Amer) > 60 Est GFR (Non-Af Amer) > 60 POC Glucose (mg/dL) Random Glucose 108 H Calcium 9.6 Magnesium Total Bilirubin 0.5 Direct Bilirubin AST 23 ALT 24 Alkaline Phosphatase 74 Total Protein 8.8 H Albumin 4.7 Globulin 4.0 H Albumin/Globulin Ratio 1.2 Triglycerides Cholesterol LDL Cholesterol Direct HDL Cholesterol Thyroxine (T4) TSH 3rd Generation Salicylates < 1.0 Urine Opiates Screen Urine Methadone Screen Acetaminophen 16.0 Ur Barbiturates Screen Ur Phencyclidine Scrn Ur Amphetamines Screen U Benzodiazepines Scrn U Oth Cocaine Metabols U Cannabinoids Screen Alcohol, Quantitative < 10 05/30/17 05/30/17 05/30/17 14:00 14:01 15:05 WBC RBC Hgb Hct MCV MCH MCHC RDW Plt Count MPV Neut % (Auto) Lymph % (Auto) Smyth % (Auto) Eos % (Auto) Baso % (Auto) Neut # (Auto) Lymph # (Auto) Smyth # (Auto) Eos # (Auto) Baso # (Auto) Sodium Potassium Chloride Carbon Dioxide Anion Gap BUN Creatinine Est GFR ( Amer) Est GFR (Non-Af Amer) POC Glucose (mg/dL) 101 Random Glucose Calcium Magnesium 1.8 Total Bilirubin Direct Bilirubin AST ALT Alkaline Phosphatase Total Protein Albumin Globulin Albumin/Globulin Ratio Triglycerides Cholesterol LDL Cholesterol Direct HDL Cholesterol Thyroxine (T4) TSH 3rd Generation Salicylates Urine Opiates Screen Negative Urine Methadone Screen Negative Acetaminophen Ur Barbiturates Screen Negative Ur Phencyclidine Scrn Negative Ur Amphetamines Screen Negative U Benzodiazepines Scrn Positive U Oth Cocaine Metabols Negative U Cannabinoids Screen Negative Alcohol, Quantitative 05/30/17 05/31/17 17:21 08:21 WBC RBC Hgb Hct MCV MCH MCHC RDW Plt Count MPV Neut % (Auto) Lymph % (Auto) Smyth % (Auto) Eos % (Auto) Baso % (Auto) Neut # (Auto) Lymph # (Auto) Smyth # (Auto) Eos # (Auto) Baso # (Auto) Sodium Potassium Chloride Carbon Dioxide Anion Gap BUN Creatinine Est GFR ( Amer) Est GFR (Non-Af Amer) POC Glucose (mg/dL) Random Glucose Calcium Magnesium Total Bilirubin 0.4 Direct Bilirubin 0.2 AST 25 ALT 24 Alkaline Phosphatase 55 Total Protein 7.5 Albumin 4.0 Globulin 3.5 Albumin/Globulin Ratio 1.1 Triglycerides 98 D Cholesterol 184 LDL Cholesterol Direct 94 HDL Cholesterol 43 Thyroxine (T4) 8.58 TSH 3rd Generation 1.18 Salicylates Urine Opiates Screen Urine Methadone Screen Acetaminophen Ur Barbiturates Screen Ur Phencyclidine Scrn Ur Amphetamines Screen U Benzodiazepines Scrn U Oth Cocaine Metabols U Cannabinoids Screen Alcohol, Quantitative Assessment & Plan - Assessment and Plan (Free Text) Plan: ASSESSMENT/PLAN This is a 52 yo female with a past medical history of hepatitis, depression, and alcoholism who is admitted to the inpatient psychiatric facility for suicidal ideation. 1) Suicidal ideation, possible attempt with NyQuil - Repeat LFT normal - Drug toxicology normal - Further management as per psychiatry 2) Bipolar disorder with depression - Psych is managing
--- NOTE | 2017-05-31 15:52 | CARD ---
APPROVED REPORT EKG Measurement Heart [id number] <Conclusion> Sinus tachycardia Otherwise normal ECG
--- NOTE | 2017-05-31 19:02 | PCM.PSYCH ---
Initial Psychiatric Evaluation - Initial Psychiatric Evaluation Chief Complaint (in patient's own words): i dont know i dont feel well was drinking i dont remember why Patient's Reaction to Hospitalization: signed in voluntarily History of Present Illness and Precipitating Events: was at home drinking, does not know why, became upset, crying was thinking about hurting myself notes reviewed from er as noted below: 2 yo female with a past medical history of hepatitis, depression, and alcoholism who is admitted to the inpatient psychiatric facility for suicidal ideation and possible suicidal attempt with NyQuil. She is tearful upon encounter and appears very anxious. Current Medications: Active Medications Generic Name Dose Route Start Last Admin Trade Name Freq PRN Reason Stop Dose Admin Acetaminophen 650 mg 05/30/17 21:58 Tylenol 325mg Tab PO Q4 PRN pain level 4-7 Al Hydrox/Mg Hydrox/Simethicone 30 ml 05/30/17 21:58 Maalox Plus 30 Ml PO Q4 PRN Dyspepsia Diphenhydramine HCl 50 mg 05/30/17 21:58 Benadryl IM Q6 PRN Extrapyramidal S/S Unable PO Diphenhydramine HCl 50 mg 05/30/17 21:58 Benadryl PO Q6 PRN Extrapyramidal Symptoms Haloperidol 5 mg 05/30/17 21:58 Haldol PO Q4 PRN Agitation Haloperidol Lactate 5 mg 05/30/17 21:58 Haldol IM Q4 PRN Agitation, Unable to Take PO Lorazepam 2 mg 05/30/17 21:58 Ativan IM Q4 PRN Anxiety/Agitation,Unable PO Lorazepam 2 mg 05/30/17 21:58 05/31/17 12:54 Ativan PO 2 mg Q4 PRN Administration Anxiety/Agitation Magnesium Hydroxide 30 ml 05/30/17 21:58 Milk Of Magnesia PO HS PRN Constipation Past Psychiatric History - Past Psychiatric History Prior Professional Help: does not remember before depression drinking [place] Explanation of prior treatment: poor historian etoh appears visitor may have brought etoh in as pt was reportedly with negative bal upon admission and repeat today after two small vodka bottles each 50 mls each empty and a repeat bal today was 141. History of ETOH/Drug Use: etoh does not recall how long "long time" History of Family Illness: does not recall Pertinent Medical Hx (Current Medical&Sleep Prob, Allergies): Allergies Allergy/AdvReac Type Severity Reaction Status Date / Time No Known Allergies Allergy Verified 04/28/17 01:08 Benztropine [Cogentin] 1 mg PO BID #14 tab 05/09/17 DiphenhydrAMINE [Benadryl] 25 mg PO BID #14 cap 05/09/17 FLUoxetine [Prozac] 20 mg PO DAILY #30 cap 05/09/17 Haloperidol [Haldol] 10 mg PO BID #14 tab 05/09/17 Multivitamins [Hexavitamin] 1 tab PO DAILY #30 tab 05/09/17 QUEtiapine [Seroquel] 100 mg PO HS #14 tab 05/09/17 Review of Systems - Psychiatric Psychiatric: Abnormal Sleep Pattern, Anxiety, Depression, Suicidal Ideation Mental Status Examination - Personal Presentation Personal Presentation: Looks older than stated age - Affect Additional comments: irritable labile yelling crying at times - Motor Activity Motor Activity: Psychomotor Agitation - Reliability in Providing Information Reliability in Providing Information: Other - Speech Speech: Disorganized - Mood Mood: Depressed, Anxious - Formal Thought Process Formal Thought Process: Circumstantial - Cognitive Functions Orientation: Person Sensorium: Stuporous Attention/Concentration: Easily distracted Judgement: Imparied, as evidence by: Other - Risk Risk: Suicidal, Withdrawal (came in w/suicidal ideations etoh-today etoh intake on unit w/repeat 141) DSM 5 DX - DSM 5 DSM 5 Diagnosis: 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' substance use: etoh active substance induced mood disorder - Recommended/Plan of Treatment Treatment Recommendations and Plan of Treatment: inpt milieu vital signs and clinical observation per protocol and per status pt will be placed on a 1 to 1 for safety as it appears that pt may have been brought etoh on unit-pt had been and continues to have order for etoh w/drawal- for safety, for falls will re evaluate for possible antidepressants in am after monitoring for vital signs prns per protocol hospitalist consult discharge planning in progress Projected ELOS: 5-7 days Prognosis: guarded Discharge Plan and Discharge Criteria: safety - Smoking Cessation Smoking Cessation Initiated: No Reason for not providing: pt defers
[2017-06-01] MEDS: DiphenhydrAMINE 50 mg/ml Inj IM PRN ×2 (12:30→16:00)
--- NOTE | 2017-06-01 15:42 | PCM.PYCHPN ---
Psychiatric Progress Note - Psychiatric Progress Note Patient seen today, length of contact: chart reviewed case discussed with team Patient Chief Complaint: pt was maintained on a 1 to 1 for safety as yesterday evening and early am today was irritable demanding and reportedly yelling at nurse's station. pt is conflicted as to 48 hour notice as she states that she wants to go to home so can be with "" other times states that she wishes to remain in hospital pt required prns today including a prn hydroxyzine 50g po x 1 dose. Problems Identified/Issues Discussed: alteration in mood alteration in coping Medical Problems: poor historian etoh appears visitor may have brought etoh in as pt was reportedly with negative bal upon admission and repeat today after two small vodka bottles each 50 mls each empty and a repeat bal today was 141. Mental Status Examination - Cognitive Function Orientation: Person - Mood Mood: Depressed, Anxious - Formal Thought Process Formal Thought Process: Circumstantial - Homicidal Ideation Homicidal Ideation: No Goal/Treatment Plan - Goal/Treatment Plan Progress Toward Problem(s) and Goals/Treatment Plan: inpt milieu vital signs and clinical observation per protocol and per status pt will be placed on a 1 to 1 for safety as it appears that pt may have been brought etoh on unit-pt had been and continues to have order for etoh w/drawal- for safety, for falls will re evaluate for possible antidepressants in am after monitoring for vital signs prns per protocol hospitalist consult discharge planning in progress
[2017-06-02 09:32] VITALS: BP 123/83; PULSE 114; TEMP 97.6
--- NOTE | 2017-06-02 11:48 | PCM.PYCHDC ---
Mental Status Examination - Mental Status Examination Orientation: Person, Place Memory: Intact Mood: Neutral Affect: Broad Speech: Appropriate Attention: WNL Concentration: WNL Association: WNL Fund of Knowledge: WNL Formal Thought Process: Circumstantial Description of patient's judgement and insight: poor insight and judgment Psychotic Thoughts and Behaviors: pt denied psychotic symptoms, non elicited Suicidal Ideation: No Current Homicidal Ideation?: No Discharge Summary - Discharge Note Reason for Hospitalization: 2 yo female with a past medical history of hepatitis, depression, and alcohol use disorder, pt recently discharged from [facility] . non compliant with medications or follow up , pt started using alcohol, on day of admission pt presented to ER with depressed mood and suicidal ideation , plan to drink nyquil due to conflict with boy friend Consultations:: List each consultation separately and include: 1. Reason for request. 2. Findings. 3. Follow-up Summary of Hospital Course include:: 1. Description of specific treatment plan utilized for patients during their course of treatmen. 2. Summarize the time- course for resolution of acute symptoms and/or regressed behaviors. 3. Describe issues identified and worked on during hospitalization. 4. Describe medication utilized. 5. Describe medical problems identified and treated. 6. Reassessment of suicide risk Summary of Hospital Course: pt on day of admission was noted after a visit by boyfriend to have slurrred speech, tewo small bottles of voka emptu were found in her posession, brought by boyfriend during visiting hours, her BAL was 141, when notified by staff, pt signed 48 hour notice demanding to leave, pt was placed on 1:1 due to her recent use of alcohol while on the unit pt on discharge denied any current suicidal or homicidal ideations, denied perceptual disturbances, denid any current symptoms of depression at current mental status not danger to self or others pt was discharged with plan to follow up with AA meetings - Final Diagnosis (DSM 5) Condition upon Discharge: FAIR DSM 5: alcohol use disorder 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
== END 2017-06-02 12:25 | disposition home or self-care (01) | DRG 897 ==
LOC: H.ER 13:31 → H.ERHOLD 19:36 → H.PSYCH 20:40
PROVIDERS: ADMIT Psychiatry & Neurology Psychiatry; ATTEND Psychiatry & Neurology Psychiatry
PROC: GZHZZZZ Group Psychotherapy (ICD-10-PCS; principal; 2017-05-31)
PROC: GZ51ZZZ Individual Psychotherapy, Behavioral (ICD-10-PCS; 2017-05-31)
DX: F10.14 Alcohol abuse with alcohol-induced mood disorder (principal); F32.1 Major depressive disorder, single episode, moderate; R45.851 Suicidal ideations; F10.239 Alcohol dependence with withdrawal, unspecified; K21.9 Gastro-esophageal reflux disease without esophagitis; Z91.14 Patient's other noncompliance with medication regimen; F41.9 Anxiety disorder, unspecified; K75.9 Inflammatory liver disease, unspecified; Z79.899 Other long term (current) drug therapy; F31.9 Bipolar disorder, unspecified

== ENCOUNTER 2017-06-08 17:28 | Emergency (ER) | payer OTHER ==
[2017-06-08 17:28] VITALS: BMI 28.3
[2017-06-08 17:38] VITALS: TEMP 97.2; O2SAT 97
--- NOTE | 2017-06-08 17:46 | ED PDOC ---
HPI: Psych/Substance Abuse Time Seen by Provider: 06/08/17 17:35 Chief Complaint (Nursing): Alcohol Ingestion Chief Complaint (Provider): Drank earlier - Denies complaint Additional Complaint(s): 52 yo female with history of alcohol abuse brought by EMS from the parking lot at [facility]. Pt states she drank earlier today. Pt was brought to [facility] for alcohol intoxication. Pt has alcohol level of 220 at 1pm. Pt ambulated on arrival with steady gait. Pt denies complaint. PT states she would like to leave and see her boyfriend. EMS states she was with her sister and discharged from [facility] where labs, head and facial CT completed. Pt discharge. Sister was not happy and called EMS. On arrival patient sister insisted that she be taken to [facility]. Past Medical History Reviewed: Historical Data, Nursing Documentation, Vital Signs Vital Signs: Last Vital Signs Temp 97.2 F L 06/08/17 17:31 Pulse 120 H 06/08/17 17:31 Resp 20 06/08/17 17:31 BP 175/85 H 06/08/17 17:31 Pulse Ox 97 06/08/17 17:31 - Medical History PMH: Anxiety, Bipolar Disorder, Depression, Hepatitis Denies: Diabetes, HIV, HTN, Chronic Kidney Disease, Seizures, Sexually Transmitted Disease - Surgical History Surgical History: No Surg Hx - Family History Family History: States: Unknown Family Hx - Immunization History Hx Tetanus Toxoid Vaccination: No Hx Influenza Vaccination: No Hx Pneumococcal Vaccination: No - Home Medications Home Medications: Ambulatory Orders Medication Instructions Recorded No Known Home Med 06/02/17 - Allergies Allergies/Adverse Reactions: Allergies Allergy/AdvReac Type Severity Reaction Status Date / Time No Known Allergies Allergy Verified 06/08/17 17:30 Review of Systems ROS Statement: Except As Marked, All Systems Reviewed And Found Negative Constitutional: Negative for: Fever, Chills Respiratory: Negative for: Cough, Shortness of Breath Gastrointestinal: Negative for: Abdominal Pain Physical Exam - Reviewed Nursing Documentation Reviewed: Yes Vital Signs Reviewed: Yes - Physical Exam Appears: Positive for: Non-toxic, No Acute Distress. Negative for: Well (Very poor hygiene) Head Exam: Positive for: ATRAUMATIC, NORMAL INSPECTION, NORMOCEPHALIC Skin: Positive for: Warm. Negative for: Normal Color (Ecchymosis, left orbit) Eye Exam: Positive for: Normal appearance, EOMI, PERRL ENT: Positive for: Normal ENT Inspection Neck: Positive for: Normal, Painless ROM Cardiovascular/Chest: Positive for: Regular Rate, Rhythm Respiratory: Positive for: CNT, Normal Breath Sounds Back: Positive for: Normal Inspection Extremity: Positive for: Normal ROM Neurologic/Psych: Positive for: Alert, Oriented - ECG O2 Sat by Pulse Oximetry: 97 Disposition - Clinical Impression Clinical Impression: Alcohol abuse - Disposition Disposition Time: 17:48 Condition: GOOD Instructions: Alcohol Abuse and Alcoholism (DC)
[2017-06-08 17:50] VITALS: BP 143/81; PULSE 97; RESP 17
== END 2017-06-08 17:59 | disposition home or self-care (01) ==
LOC: H.ER 17:28
DX: F10.10 Alcohol abuse, uncomplicated (principal); Z86.59 Personal history of other mental and behavioral disorders

== ENCOUNTER 2017-09-18 00:25 | Emergency (ER) | payer MEDICARE, OTHER ==
[2017-09-18 00:25] VITALS: BMI 28.3
[2017-09-18 00:31] VITALS: TEMP 97.9
[2017-09-18] MEDS ORDERED: Sodium Chloride 0.9% 1,000 ML IV STA (00:44)
[2017-09-18 01:19] LABS: BASO % 0.5 % (0.0-2.0); EOS # 0.1 K/uL (0.0-0.7); EOS % 1.4 % (0.0-4.0); HEMOGLOBIN 10.9 g/dL (12.0-16.0); LYMPH # 1.7 K/uL (1.0-4.3); MEAN CORPUSCULAR HEMOGLOBIN 29.9 pg (27.0-31.0); MEAN CORPUSCULAR HGB CONC 32.9 g/dL (33.0-37.0); MEAN PLATELET VOLUME 7.8 fl (7.2-11.7); MONO # 0.6 K/uL (0.0-0.8); MONO % 10.9 % (0.0-10.0); NEUT # 3.3 K/uL (1.8-7.0); NEUT % 58.2 % (50.0-75.0); RBC 3.65 Mil/uL (3.80-5.20); RED CELL DISTRIBUTION WIDTH 18.4 % (11.5-14.5); WHITE BLOOD COUNT 5.7 K/uL (4.8-10.8)
--- NOTE | 2017-09-18 01:26 | ED PDOC ---
HPI: Abdomen Time Seen by Provider: 09/18/17 00:39 Chief Complaint (Nursing): GI Problem Chief Complaint (Provider): GI Problem History Per: Patient, EMS History/Exam Limitations: no limitations Onset/Duration Of Symptoms: Hrs Additional Complaint(s): Judith Enriquez is a 52 year old female with a past medical history of bipolar disorder and heroin abuse, who is well known to the ED and provider for bed seeking behavior and is presenting to the ED for evaluation of 2 episodes of loose watery, non-bloody stool onset prior to arrival. Patient is homeless and denies any abdominal pain or other medical complaints. PMD: none provided Past Medical History Reviewed: Historical Data, Nursing Documentation, Vital Signs Vital Signs: Last Vital Signs Temp 97.9 F 09/18/17 00:29 Pulse 124 H 09/18/17 00:29 Resp 18 09/18/17 00:29 BP 138/97 H 09/18/17 00:29 Pulse Ox 95 09/18/17 01:28 - Medical History PMH: Anxiety, Bipolar Disorder, Depression, Hepatitis, Schizophrenia Denies: Diabetes, HIV, HTN, Chronic Kidney Disease, Seizures, Sexually Transmitted Disease - Surgical History Other surgeries: Tubal Ligation, Hysterectomy - Family History Family History: States: Unknown Family Hx - Social History Current smoker - smoking cessation education provided: Yes Alcohol: None Drugs: Opiates - Immunization History Hx Tetanus Toxoid Vaccination: No Hx Influenza Vaccination: No Hx Pneumococcal Vaccination: No - Home Medications Home Medications: Ambulatory Orders Medication Instructions Recorded Dicyclomine [Bentyl] 20 mg PO Q12 PRN #20 tab 09/18/17 - Allergies Allergies/Adverse Reactions: Allergies Allergy/AdvReac Type Severity Reaction Status Date / Time No Known Allergies Allergy Verified 09/17/17 22:49 Review of Systems ROS Statement: Except As Marked, All Systems Reviewed And Found Negative Gastrointestinal: Positive for: Diarrhea. Negative for: Abdominal Pain Physical Exam - Reviewed Nursing Documentation Reviewed: Yes Vital Signs Reviewed: Yes - Physical Exam Appears: Positive for: Non-toxic, No Acute Distress Head Exam: Positive for: ATRAUMATIC, NORMAL INSPECTION, NORMOCEPHALIC Skin: Positive for: Normal Color, Warm, DRY Eye Exam: Positive for: EOMI, Normal appearance, PERRL ENT: Positive for: Normal ENT Inspection Neck: Positive for: Normal, Painless ROM Cardiovascular/Chest: Positive for: Regular Rate, Rhythm. Negative for: Murmur Respiratory: Positive for: Normal Breath Sounds. Negative for: Respiratory Distress Gastrointestinal/Abdominal: Positive for: Normal Exam, Soft. Negative for: Tenderness Back: Positive for: Normal Inspection Extremity: Positive for: Normal ROM. Negative for: Deformity, Swelling Neurologic/Psych: Positive for: Alert, Oriented. Negative for: Motor/Sensory Deficits - Laboratory Results Result Diagrams: 09/18/17 01:11 09/18/17 01:11 - ECG O2 Sat by Pulse Oximetry: 95 (RA) Medical Decision Making Medical Decision Making: Time: 1:11 Impression: 52 year old female with non-specific diarrhea Plan: --CMP --Lipase --Urine --ED Urine Dipstick --CBC --Bentyl 20 mg PO --IV Fluids --Urinalysis 5:40 --Labs were reviewed with no clinically significant abnormalities. --Upon provider evaluation, patient is stable for discharge and require no further treatment in the ED at this time. Scribe Attestation: Documented by Kaylin Mata, acting as a scribe for Robert Sierra MD. Provider Scribe Attestation: All medical record entries made by the Scribe were at my direction and personally dictated by me. I have reviewed the chart and agree that the record accurately reflects my personal performance of the history, physical exam, medical decision making, and the department course for this patient. I have also personally directed, reviewed, and agree with the discharge instructions and disposition. Disposition - Clinical Impression Clinical Impression: Gastroenteritis - Patient ED Disposition Is Patient to be Admitted: No - Disposition Referrals: Samir Issa MD [Primary Care Provider] - Disposition: Routine/Home Disposition Time: 05:45 Condition: STABLE Prescriptions: Dicyclomine [Bentyl] 20 mg PO Q12 PRN #20 tab PRN Reason: abdominal pain/diarrhea Instructions: Viral Gastroenteritis Forms: [employer] (Mongolian)
[2017-09-18 01:38] LABS: ALB/GLOB RATIO 1.4 (1.0-2.1)
[2017-09-18 01:43] LABS: ALBUMIN 4.2 g/dL (3.5-5.0); ALT/SGPT 35 U/L (9-52); AST/SGOT 63 U/L (14-36); BLOOD UREA NITROGEN 14 mg/dl (7-17); GFR AFRICAN-AMERICAN > 60; GFR NON-AFRICAN AMERICAN > 60; LIPASE 102 U/L (23-300)
[2017-09-18] MEDS ORDERED: Atrop/Hyos/Scop/PhenoB Elixir PO STA (05:11)
[2017-09-18] MEDS ORDERED: Alum-Mag Hydrox-Simethicone Susp (30 mL) PO STA (05:11)
[2017-09-18 05:55] VITALS: BP 132/95; PULSE 82; RESP 16; O2SAT 97
== END 2017-09-18 05:54 | disposition home or self-care (01) ==
LOC: H.ER 00:25
DX: K52.9 Noninfective gastroenteritis and colitis, unspecified (principal)

== ENCOUNTER 2017-09-18 07:15 | Emergency (ER) | payer MEDICARE, OTHER ==
[2017-09-18 07:33] VITALS: BMI 24.7
--- NOTE | 2017-09-18 09:31 | ED PDOC ---
HPI: Abdomen Time Seen by Provider: 09/18/17 07:39 Chief Complaint (Nursing): Abdominal Pain Chief Complaint (Provider): abdominal pain diarrhea History Per: Patient History/Exam Limitations: no limitations Current Symptoms Are (Timing): Still Present Location Of Pain/Discomfort: Diffuse Quality Of Discomfort: Unable To Describe, Cramping Associated Symptoms: Diarrhea, Loss Of Appetite Exacerbating Factors: None Alleviating Factors: None Last Bowel Movement: Today Additional Complaint(s): 52yo female represents to ED c/o abdominal cramping, diarrhea ongoing for several days. Seen several times over last week in ED, concern for bed seeking behavior. Labs performed overnight unremarkable. In ED walking around requesting a phone to call her . She admits to being homeless currently. Past Medical History Reviewed: Historical Data, Nursing Documentation, Vital Signs Vital Signs: Last Vital Signs Temp 97.7 F 09/18/17 10:05 Pulse 109 H 09/18/17 10:05 Resp 18 09/18/17 10:05 BP 132/78 09/18/17 10:05 Pulse Ox 97 09/18/17 10:05 - Medical History PMH: Anxiety, Bipolar Disorder, Depression, Hepatitis, Schizophrenia Denies: Diabetes, HIV, HTN, Chronic Kidney Disease, Seizures, Sexually Transmitted Disease - Family History Family History: States: Unknown Family Hx - Immunization History Hx Tetanus Toxoid Vaccination: No Hx Influenza Vaccination: No Hx Pneumococcal Vaccination: No - Home Medications Home Medications: Ambulatory Orders Medication Instructions Recorded Dicyclomine [Bentyl] 20 mg PO Q12 PRN #20 tab 09/18/17 Loperamide [Loperamide HCl] 2 mg PO QID PRN #8 cap 09/18/17 - Allergies Allergies/Adverse Reactions: Allergies Allergy/AdvReac Type Severity Reaction Status Date / Time No Known Allergies Allergy Verified 09/18/17 07:54 Review of Systems ROS Statement: Except As Marked, All Systems Reviewed And Found Negative Constitutional: Negative for: Fever Cardiovascular: Negative for: Chest Pain Respiratory: Negative for: Shortness of Breath Gastrointestinal: Positive for: Abdominal Pain, Diarrhea Genitourinary Female: Negative for: Dysuria Musculoskeletal: Negative for: Neck Pain Skin: Negative for: Rash Neurological: Negative for: Weakness, Altered Mental Status Psych: Negative for: Depression, Suicidal ideation Physical Exam - Reviewed Nursing Documentation Reviewed: Yes Vital Signs Reviewed: Yes - Physical Exam Appears: Positive for: Non-toxic (poor hygiene), No Acute Distress Head Exam: Positive for: ATRAUMATIC, NORMAL INSPECTION, NORMOCEPHALIC Skin: Positive for: Normal Color, Warm, DRY Eye Exam: Positive for: EOMI, Normal appearance, PERRL ENT: Positive for: Normal ENT Inspection Neck: Positive for: Normal, Painless ROM Cardiovascular/Chest: Positive for: Regular Rate, Rhythm Respiratory: Positive for: CNT, Normal Breath Sounds Gastrointestinal/Abdominal: Positive for: Soft, Tenderness (mild diffuse tenderness). Negative for: Distended, Guarding Back: Positive for: Normal Inspection Extremity: Positive for: Normal ROM Neurologic/Psych: Positive for: Alert, Oriented. Negative for: Motor/Sensory Deficits - ECG O2 Sat by Pulse Oximetry: 99 Medical Decision Making Medical Decision Making: labs last night clinically unremarkable will obtain CT abd pelv given recurrent visits Disposition - Clinical Impression Clinical Impression: Abdominal cramps, Diarrhea - Patient ED Disposition Is Patient to be Admitted: No - Disposition Referrals: [facility] [Outside] Disposition: Routine/Home Disposition Time: 09:40 Condition: STABLE Additional Instructions: WALT PETERSEN, thank you for letting us take care of you today. Your provider was Jose Francisco Jamison III, DO and you were treated for DIARRHEA. The emergency medical care you received today was directed at your acute symptoms. If you were prescribed any medication, please fill it and take as directed. It may take several days for your symptoms to resolve. Return to the Emergency Department if your symptoms worsen, do not improve, or if you have any other problems. Please contact your doctor or call one of the physicians/clinics you have been referred to that are listed on the Patient Visit Information form that is included in your discharge packet. Bring any paperwork you were given at discharge with you along with any medications you are taking to your follow up visit. Our treatment cannot replace ongoing medical care by a primary care provider outside of the emergency department. Thank you for allowing the [facility] team to be part of your care today. If you had an X-Ray or CT scan: A Radiologist will review the ED reading if any change in treatment is needed we will contact you. If you had a blood, urine, or wound culture: It will take several days for the results, if any change in treatment is needed we will contact you. * Prescriptions: Loperamide [Loperamide HCl] 2 mg PO QID PRN #8 cap PRN Reason: Diarrhea Instructions: Diarrhea and Traveler's Diarrhea, Adult (DC), Acute Abdomen ( Belly Pain), Adult (DC) Forms: [employer] (Panamanian)
--- NOTE | 2017-09-18 09:53 | CT ---
Date of service: 09/18/2017 PROCEDURE: CT Abdomen and Pelvis without intravenous contrast HISTORY: abd pain COMPARISON: None. TECHNIQUE: Without contrast.. Contrast dose: 0 Radiation dose: Total exam DLP = 359.32 mGy-cm. This CT exam was performed using one or more of the following dose reduction techniques: Automated exposure control, adjustment of the mA and/or kV according to patient size, and/or use of iterative reconstruction technique. FINDINGS: LOWER THORAX: Unremarkable. LIVER: Unremarkable. No gross lesion or ductal dilatation. GALLBLADDER AND BILE DUCTS: Unremarkable. PANCREAS: Unremarkable. No gross lesion or ductal dilatation. SPLEEN: Unremarkable. ADRENALS: Unremarkable. No mass. KIDNEYS AND URETERS: Unremarkable. No hydronephrosis. No solid mass. VASCULATURE: Unremarkable. No aortic aneurysm. BOWEL: Unremarkable. No obstruction. No gross mural thickening. APPENDIX: Unremarkable. Normal appendix. PERITONEUM: Unremarkable. No free fluid. No free air. LYMPH NODES: Unremarkable. No enlarged lymph nodes. BLADDER: Unremarkable. REPRODUCTIVE: Normal uterus BONES: No acute fracture. OTHER FINDINGS: None. IMPRESSION: Unremarkable non contrast enhanced CT of the abdomen and pelvis.
[2017-09-18 10:06] VITALS: BP 132/78; PULSE 109; RESP 18; TEMP 97.7
[2017-09-21 19:03] VITALS: O2SAT 99
== END 2017-09-18 10:06 | disposition home or self-care (01) ==
LOC: H.ER 07:15
DX: R10.9 Unspecified abdominal pain (principal); R19.7 Diarrhea, unspecified; F20.9 Schizophrenia, unspecified; F31.9 Bipolar disorder, unspecified; F41.9 Anxiety disorder, unspecified